=== PATIENT | male | born 1975 | race African-American/Black ===

== ENCOUNTER 2019-06-16 03:25 | Emergency (ER) | payer OTHER ==
[2019-06-16] MEDS ORDERED: predniSONE 20 MG TABLET (UD) PO ONE (04:05)
[2019-06-16] MEDS ORDERED: IBUPROFEN 400 MG TABLET (FP) PO ONE ×2 (04:05→04:30)
[2019-06-16] MEDS ORDERED: SODIUM CHLORIDE FOR INHALATION 3 ML VIAL.NEB IH ONE (04:05)
--- NOTE | 2019-06-16 04:12 | PDOC ---
History of Present Illness - General Chief Complaint: Edema Stated Complaint: RT FOOOT PAIN/SWELLING Time Seen by Provider: 06/16/19 04:09 - History of Present Illness Initial Comments: Sumeet Rodriguez is a 44yo man with a PMH of gout and KEIKO s/p tonsillectomy who presents with right great toe pain, swelling, redness, and warmth for several days. He additionally reports nasal congestion, cough, and sore throat since yesterday evening. Mr Rodriguez has taken 600mg ibuprofen several times today without relief of his pain. He does not recall what was done the last time he had gout, which was in his knee, and never followed up on treatment. He states that he stopped eating meat and has not had symptoms in several years. However, his right big toe started to become red, swollen and painful 2-3 days ago and has continued to worsen. He denies any trauma to the foot. He additionally reports that he was concerned because he has a family history of blood clots, and he thought the swelling could be due to a clot. He denies any personal history of clots, immobilization, recent surgery, broken bones, h/o cancer, recent travel, or any SOB or pleuritic pain. Mr Rodriguez additionally notes that he woke up overnight with a sore throat after he had been coughing frequently in the evening. He endorses nasal congestion and one episode of diarrhea yesterday but denies any fever, chills, nausea, or vomiting. Past History - Past Medical History Allergies/Adverse Reactions: Allergies Allergy/AdvReac Type Severity Reaction Status Date / Time No Known Allergies Allergy Verified 06/16/19 04:13 Home Medications: Ambulatory Orders Indomethacin 50 mg PO TID #21 capsule 06/16/19 Prednisone [Prednisone 50 MG TABLETS] 50 mg PO DAILY #5 tablet 06/16/19 Review of Systems - Review of Systems Comments:: General: No fevers, no chills, no weight or appetite change, + malaise HEENT: No changes in vision, no changes in hearing, + congestion, + sore throat CV: No chest pain, no palpitations, no LE edema Pulm: No SOB, + cough, no wheezing GI: No nausea or vomiting, no change in bowel habits, no melena : No frequency, no urgency, no dysuria Musc: See HPI. Skin: No rash, no lesions, no erythema Endo: No excessive thirst, no heat/cold intolerance Heme: No unusual bruising or bleeding, no swollen glands Neuro: No syncope, no numbness/tingling, no focal weakness Vasc: No claudication Psych: No recent change in mood, no SI or HI *Physical Exam - Physical Exam General: Comfortable, no acute distress HEENT: Atraumatic. PERRL, EOMI, MMM, voice normal, no LAD. S/p tonsillectomy. No pharyngeal erythema or exudates. TM clear b/l. Cards: RRR, no murmur appreciated Pulm: Comfortable on room air, clear to auscultation bilaterally Abd: Soft, nontender, nondistended Ext: Atraumatic. No LE edema. ROM intact. Strength 5/5 and equal bilaterally Vasc: Extremities WWP. Palpable radial and pedal pulses bilaterally Skin: Normal color, no rashes or lesions Neuro: A&Ox3, CN grossly intact, normal speech, motor/sensory grossly intact and symmetric Psych: Mood appropriate to situation Medical Decision Making - Medical Decision Making 06/16/19 04:11 Sumeet Rodriguez is a 44yo man with a PMH of gout and KEIKO s/p tonsillectomy who presents with right great toe pain, swelling, redness, and warmth for several days. He additionally reports nasal congestion, cough, and sore throat since yesterday evening. - Toe swelling, erythema, warmth, pain consistent with gout - Pt has been taking ibuprofen at home without relief; will add prednisone - Cough, congestion, sore throat, diarrhea consistent with flu or flu-like illness. Saline neb for cough. Will not test for flu as pt does not qualify for treatment 06/16/19 05:38 - Feeling improved - Will give additional saline neb prior to discharge - Indomethacin and prednisone prescriptions sent - Discussed home care, follow up at length. Pt understands and agrees Discussed with Dr Rachel Mullen PGY2 Discharge - Discharge Information Problems reviewed: Yes Clinical Impression/Diagnosis: Flu-like symptoms Gout Qualifiers: Gout site: toe Gout etiology: unspecified cause Chronicity: acute Laterality: right Qualified Code(s): M10.9 - Gout, unspecified Condition: Stable Disposition: HOME - Admission No - Follow up/Referral Referrals: Roverto Wright MD [Primary Care Provider] - - Patient Discharge Instructions Patient Printed Discharge Instructions: DI for Gout, DI for Viral Upper Respiratory Infection -- Adult Additional Instructions: Discharge Instructions: You were seen in the emergency department for toe pain as well as for cough, congestion and sore throat. Your toe pain is due to gout. You have been prescribed a pain medication and steroid to help with your symptoms. Your cough and congestion are most likely caused by a viral infection such as the common cold. You should feel better within a week without any additional treatment. Home Care and Follow Up: - Take the prescribed steroid, prednisone, 50mg daily as prescribed - You have been prescribed an anti-inflammatory pain reliever, indomethacin, that should be taken every 8 hours until symptoms resolve. - Make sure you are drinking plenty of fluids while you are sick. Increase your normal fluid intake. It is OK if you do not feel like eating as long as you are staying well hydrated - Consider placing a humidifier in your room overnight to help relieve congestion and reduce drying of your nose and mouth. - Use throat lozenges (cough drops) for sore throat or cough - If you use additional cold medications, make sure they do not contain medicines you are already taking such as acetaminophen or ibuprofen - You should feel better within a week, though cough can sometimes last longer. If you are not feeling better in a week, follow up with your primary doctor. You may need long-term treatment to prevent additional gout attacks. - Seek immediate care if you have worsening symptoms, you are unable to stay hydrated, you develop high fevers over 104F that do not come down with medication, or you have any other medical emergency. - Post Discharge Activity Work/Back to School Note: Back to Work
[2019-06-16 04:13] VITALS: TEMP 98.8; BMI 33.6
[2019-06-16] MEDS ORDERED: predniSONE 20 MG TABLET (UD) ONE (04:30)
--- NOTE | 2019-06-16 05:53 | PDOC ---
Attending Attestation - Resident Resident Name: SebasSuze - ED Attending Attestation I have performed the following: I have examined & evaluated the patient, The case was reviewed & discussed with the resident, I agree w/resident's findings & plan - HPI HPI: 06/16/19 05:40 44yo man with a PMH of gout and KEIKO s/p tonsillectomy who presents with right great toe pain, swelling, redness, and warmth for 2-3days. He additionally reports nasal congestion, cough, and sore throat beginning yesterday evening has been taking ibuprofen without relief prior gout flare in his knee. he has been compliant with diet, does not eat much seafood (new shrimp allergy? ) and red meat. he did eat tuna this week +social ETOH use. no trauma. no fever or infectious sx. family history of DVT/PE, so he was considering blood clot. no recent immobilization, recent surgery, broken bones, h/o cancer, recent travel, or any SOB /chest pain. Mr Rodriguez additionally notes that he woke up overnight with a sore throat after he had been coughing frequently in the evening. He endorses nasal congestion and one episode of diarrhea yesterday but denies any fever, chills, nausea, or vomiting. - Physicial Exam PE: 06/16/19 05:42 Agree with the resident's HPI and PE as documented in the electronic medical record. NAD, well appearing, EOMI, PERRL, nl conjunctiva, anicteric; MMM, normal phonation, oropharynx clear. neck supple. lungs clear, no respiratory distress. RRR, abdomen soft nontender. No rebound, no guarding. Back nontender. HOUSER x4, no focal neuro deficits. No peripheral edema. normal color for ethnicity, WWP. +right MTP joint erythema, warmth, TTP. no calf tenderness. no proximal extremity tenderness. - Medical Decision Making 06/16/19 05:43 Vital Signs Temp Pulse Resp BP Pulse Ox 98.8 F 88 18 131/86 99 06/16/19 03:55 06/16/19 03:55 06/16/19 03:55 06/16/19 03:55 06/16/19 03:55 pt is well appearing VS reviewed, wnl, normal sats, heart rate no fever no systemic findings or features. sx most c/w gouty arthritis, with classic presentation at right MTP joint also likely viral illness/URI low utility of testing/flu testing, defer, as pt is healthy and well appearing with out VS derangements. saline nebs for the cough oral hydration supportive care treat with steroids and indomethacin, gouty diet reviewed, pt does not eat red meats and most seafood/shrimp, limit etoh use discharge stable condition, supportive care, meds sent to pharmacy f/u PCP, rheum referral through PCP for long term care administrator followup.
[2019-06-16 06:06] VITALS: BP 127/83; PULSE 84
== END 2019-06-16 05:55 | disposition home or self-care (01) ==
LOC: JER 03:25
PROC: 3E0F7GC Introduction of Other Therapeutic Substance into Respiratory Tract, Via Natural or Artificial Opening (ICD-10-PCS; principal; 2019-06-16)
DX: J11.1 Influenza due to unidentified influenza virus with other respiratory manifestations (principal); M10.9 Gout, unspecified; G47.33 Obstructive sleep apnea (adult) (pediatric)
CPT/HCPCS: 99282-25

== ENCOUNTER 2020-01-03 16:53 | Emergency (ER) | payer OTHER ==
--- NOTE | 2020-01-03 17:05 | PDOC ---
Rapid Medical Evaluation Time Seen by Provider: 01/03/20 17:02 Medical Evaluation: Allergies Allergy/AdvReac Type Severity Reaction Status Date / Time No Known Allergies Allergy Verified 06/16/19 04:13 01/03/20 17:03 CC: painful bumps to body, no fever, no drainage, tried hjot soaks without improvement Exam: noted mult erythematous papules /lumps to chris axillas Plan: labs Discharge Disposition - Diagnosis Abscess - Referrals - Patient Instructions - Post Discharge Activity
[2020-01-03 17:13] VITALS: TEMP 98.9; BMI 36.3
--- NOTE | 2020-01-03 17:30 | PDOC ---
Attending Attestation - Resident Resident Name: Alicia Terana - ED Attending Attestation I have performed the following: I have examined & evaluated the patient, The case was reviewed & discussed with the resident, I agree w/resident's findings & plan, Exceptions are as noted - HPI HPI: 44 yo M history KEIKO presents with multiple painful, swollen skin lesions. He has had symptoms for [address] Moncada, who called prior to his arrival, he initially suspected they were bites. They worsened with time. He was given keflex at [place] [facility], continued to worsen. He was subsequently given bactrim. The lesions creusted over and healed. However, he developed more lesions after those healed, now with multiple painful areas- particularly the L underarm, his low back, and his L knee. - Physicial Exam PE: GENERAL: Awake, alert, and fully oriented, in no acute distress. Appears uncomfortable HEAD: No signs of trauma EYES: PERRLA, EOMI, sclera anicteric, conjunctiva clear ENT: Auricles normal inspection, hearing grossly normal, nares patent, oropharynx clear without exudates. Moist mucosa NECK: Normal ROM, supple, no lymphadenopathy, JVD, or masses LUNGS: Breath sounds equal, clear to auscultation bilaterally. No wheezes, and no crackles HEART: Regular rate and rhythm, normal S1 and S2, no murmurs, rubs or gallops ABDOMEN: Soft, nontender, normoactive bowel sounds. No guarding, no rebound. No masses EXTREMITIES: Normal range of motion, no edema. No clubbing or cyanosis. No cords, erythema, or tenderness NEUROLOGICAL: Cranial nerves II through XII grossly intact. Normal speech, normal gait. Motor and sensation intact SKIN: Warm, dry, normal turgor. +Erythematous, indurated, tender area to the low back. No fluctuance. +Erythematous, indurated tender area to the L mid-torso, midaxillary line. +Small pustule to the L anterior knee, no surrounding cellulitis. - Medical Decision Making Pt with multiple areas of cellulitis, however, both the low back and torso lesion are not at a head with no fluctuant area- would not benefit from I&D at this time. Will drain the small lesion to his knee, as the skin is very thin and it is at a head. Will treat with abx. Patient refused HIV test. Discharge - Discharge Information Problems reviewed: Yes Clinical Impression/Diagnosis: Abscess Condition: Stable Disposition: HOME - Additional Discharge Information Prescriptions: Sulfamethoxazole/Trimethoprim [Bactrim Ds -] 1 tab PO BID #14 tablet Cephalexin Monohydrate [Keflex -] 500 mg PO Q6H #28 capsule - Follow up/Referral Referrals: Tierney Moncada [Primary Care Provider] - Marjan Doty MD [Staff Physician] - Eros Cantor [Staff Physician] - Svetlana Vu [Staff Physician] - Victoria Mckeon [Staff Physician] - - Patient Discharge Instructions Patient Printed Discharge Instructions: DI for Skin Abscess Additional Instructions: You came into the ER for multiple skin abscesses and chest pain. In the ED, you were evaluated with labs, EKG, and chest xray. Your lab results, EKG, and chest xray were normal. There does not appear to be an acute need for immediate hospitalization. You were advised to follow up with your primary care doctor within 1 week. You were given a referral to dermatologists. Call tomorrow to schedule appointment You were given a prescription for Keflex and Bactrim. These were sent to your pharmacy, [facility]. Come back to the ER immediately with any new or worsening concerns, such as fever, shortness of breath. Thank you for coming to the [facility] ER. We hope you feel better soon! - Post Discharge Activity
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
[2020-01-03] MEDS ORDERED: IBUPROFEN 400 MG TABLET (FP) PO ONE ×2 (18:21→19:13)
[2020-01-03] MEDS ORDERED: SULFAMETHOXAZOLE/TRIMETHOPRIM 800MG/160MG D.S. TABLET PO ONE (19:20)
[2020-01-03] MEDS ORDERED: CEPHALEXIN MONOHYDRATE 500 MG CAPSULE (UD) PO ONE (19:20)
[2020-01-03 20:06] LABS: BASO % 0.7 % (0-2.0); EOS % 1.8 % (0-4.5); HEMATOCRIT 39.1 % (35.4-49); HEMOGLOBIN 13.2 GM/dL (11.7-16.9); LYMPH % 15.8 % (8-40); MCH 29.1 pg (25.7-33.7); MCHC 33.8 g/dl (32.0-35.9); MEAN CELL VOLUME 86.2 fl (80-96); MONO % 6.1 % (3.8-10.2); NEUT % 75.6 % (42.8-82.8); PLATELET COUNT 208 K/MM3 (134-434); RBC 4.54 M/mm3 (4.00-5.60); RDW 13.8 % (11.9-15.9); WHITE BLOOD COUNT 10.8 K/mm3 (4.0-10.0)
[2020-01-03] MEDS ORDERED: CEPHALEXIN MONOHYDRATE 500 MG CAPSULE (UD) ONE (20:38)
[2020-01-03] MEDS ORDERED: SULFAMETHOXAZOLE/TRIMETHOPRIM 800MG/160MG D.S. TABLET ONE (20:39)
[2020-01-03 20:48] LABS: ALBUMIN 3.5 g/dl (3.4-5.0); ALK PHOS 62 U/L (45-117); ANION GAP 10 MMOL/L (8-16); BILIRUBIN,TOTAL 1.1 mg/dL (0.2-1); BLOOD UREA NITROGEN 8.2 mg/dL (7-18); CALCIUM 8.6 mg/dL (8.5-10.1); CHLORIDE 105 mmol/L (98-107); CO2 23 mmol/L (21-32); CREATININE 1.1 mg/dL (0.55-1.3); GLUCOSE,RANDOM 118 mg/dL (74-106); POTASSIUM 3.7 mmol/L (3.5-5.1); SGOT/AST 30 U/L (15-37); SGPT/ALT 30 U/L (13-61); SODIUM 138 mmol/L (136-145); TOT PROT 6.8 g/dl (6.4-8.2)
[2020-01-03 22:14] VITALS: BP 98/62; PULSE 61
--- NOTE | 2020-01-04 12:55 | EKG ---
Test Reason : Blood Pressure : / mmHG Vent. Rate : 065 BPM Atrial Rate : 065 BPM P-R Int : 186 ms QRS Dur : 076 ms QT Int : 378 ms P-R-T Axes : 028 013 010 degrees QTc Int : 393 ms NORMAL SINUS RHYTHM NORMAL ECG NO PREVIOUS ECGS AVAILABLE Confirmed by MD THERESA, LEWIS ([id number]) on 01/04/2020 12:54:59 PM Referred By: Confirmed By:LEWIS CARDENAS MD
== END 2020-01-03 21:07 | disposition home or self-care (01) ==
LOC: JER 16:53
DX: L02.412 Cutaneous abscess of left axilla (principal); L02.212 Cutaneous abscess of back [any part, except buttock and flank]; L02.213 Cutaneous abscess of chest wall
CPT/HCPCS: 36415; 71045-TC-FY; 80053; 84484; 85025; 87070; 87186; 87205; 93005; 93010; 99285-25